=== PATIENT | male | born 1970 | race Caucasian/White ===

== ENCOUNTER 2018-08-20 23:13 | Emergency (ER) | payer BC ==
[~2018-08-20] VITALS: Ht 182.9 cm; Wt 107.7 kg
[2018-08-20 23:45] LABS: BASOPHILS % (AUTO) 0.1 % (0-1); EOSINOPHILS # (AUTO) 0.1 X10'3 (0-0.9); HEMATOCRIT 52.2 % (42.0-52.0); LYMPHOCYTES # (AUTO) 2.2 X10'3 (1.1-4.8); LYMPHOCYTES % (AUTO) 16.9 % (21-51); MEAN CORPUSCULAR HEMOGLOBIN 31.3 PG (27.0-31.0); MEAN CORPUSCULAR HGB CONC 34.4 % (33.0-36.5); MEAN CORPUSCULAR VOLUME 90.8 FL (78-98); MEAN PLATELET VOLUME 8.5 FL (7.4-10.4); MONOCYTES # (AUTO) 0.7 X10'3 (0-0.9); MONOCYTES % (AUTO) 5.6 % (2-12); NEUTROPHILS # (AUTO) 9.8 X10'3 (1.8-7.7); NEUTROPHILS % (AUTO) 76.4 % (42-75); PLATELET COUNT 268 X10'3 (140-440); RED BLOOD COUNT 5.74 X10'6 (4.70-6.10); RED CELL DISTRIBUTION WIDTH 13.9 % (11.5-14.5); WHITE BLOOD COUNT 12.9 X10'3 (4.5-11.0)
[2018-08-20 23:56] LABS: ALANINE AMINOTRANSFERASE 22 U/L (12-78); ALBUMIN 4.3 G/DL (3.4-5.0); ALBUMIN/GLOBULIN RATIO 1.1 (1.1-1.5); ALKALINE PHOSPHATASE 68 IU/L (46-116); ANION GAP 16 (8-16); ASPARTATE AMINO TRANSFERASE 14 U/L (10-37); BILIRUBIN,TOTAL 0.8 MG/DL (0.1-1.0); BLOOD UREA NITROGEN 13 MG/DL (7-18); BUN/CREATININE RATIO 13.3 (5.4-32.0); CALCIUM 9.2 MG/DL (8.5-10.1); CHLORIDE 99 MMOL/L (99-107); CREATININE 0.98 MG/DL (0.60-1.10); GLUCOSE 103 MG/DL (70-104); POTASSIUM 3.7 MMOL/L (3.5-5.1); SODIUM 139 MMOL/L (135-145); TOTAL PROTEIN 8.3 G/DL (6.4-8.2); eGFR 81 ML/MIN
[2018-08-21] MEDS ORDERED: propofol 1000mg/100ml bottle 100 ML IV ONE
[2018-08-21] MEDS ORDERED: propofol 10mg/ml 20ml vial IV ONE
[2018-08-21 00:02] LABS: MAGNESIUM 2.1 MG/DL (1.5-2.4)
[2018-08-21 00:21] LABS: INR 1.1 INR; PARTIAL THROMBOPLASTIN TIME 32 SECONDS (22-32); PROTHROMBIN TIME 11.1 SECONDS (9.0-12.0)
--- NOTE | 2018-08-21 00:28 | NUR ---
MD CALLES ASSESSED PT AND DETERMINED PT RECENTLY WENT INTO A-FIB. WE WILL CARDIOVERT AT BEDSIDE.
--- NOTE | 2018-08-21 01:10 | NUR ---
PT TOLERATED PROCEDURE WELL, RETURNED TO BASELINE RAPIDLY, MD RAZA AT BEDSIDE FOR RE-EVAL FOR DISCHARGE.
[2018-08-21 01:59] VITALS: BP 124/65
== END 2018-08-21 02:00 | disposition home or self-care (01) ==
LOC: ER 23:14
DX: I48.2 Chronic atrial fibrillation (principal); I10 Essential (primary) hypertension
CPT/HCPCS: 36415; 71045; 80053; 83735; 84484; 85025; 85610; 85730; 92960; 93005; 99285; J2704

== ENCOUNTER 2018-08-24 02:18 | Emergency (ER) | payer BC ==
[~2018-08-24] VITALS: Ht 182.9 cm; Wt 107.7 kg
[2018-08-24] MEDS ORDERED: aspirin 81mg tab.chew PO ONE (02:30)
[2018-08-24 02:59] LABS: BASOPHILS % (AUTO) 0.4 % (0-1); EOSINOPHILS # (AUTO) 0.1 X10'3 (0-0.9); EOSINOPHILS % (AUTO) 1.3 % (0-6); HEMATOCRIT 54.2 % (42.0-52.0); LYMPHOCYTES # (AUTO) 2.7 X10'3 (1.1-4.8); LYMPHOCYTES % (AUTO) 28.4 % (21-51); MEAN CORPUSCULAR HEMOGLOBIN 30.5 PG (27.0-31.0); MEAN CORPUSCULAR HGB CONC 33.7 % (33.0-36.5); MEAN CORPUSCULAR VOLUME 90.6 FL (78-98); MEAN PLATELET VOLUME 8.3 FL (7.4-10.4); MONOCYTES # (AUTO) 0.7 X10'3 (0-0.9); MONOCYTES % (AUTO) 7.4 % (2-12); NEUTROPHILS # (AUTO) 5.9 X10'3 (1.8-7.7); NEUTROPHILS % (AUTO) 62.5 % (42-75); PLATELET COUNT 254 X10'3 (140-440); RED BLOOD COUNT 5.99 X10'6 (4.70-6.10); RED CELL DISTRIBUTION WIDTH 13.9 % (11.5-14.5); WHITE BLOOD COUNT 9.4 X10'3 (4.5-11.0)
[2018-08-24 03:03] LABS: HEMOGLOBIN 18.3 g/dl (14.0-17.9)
[2018-08-24 03:07] LABS: INR 1.1 INR; PARTIAL THROMBOPLASTIN TIME 32 SECONDS (22-32)
[2018-08-24 03:08] LABS: ALANINE AMINOTRANSFERASE 25 U/L (12-78); ALBUMIN 4.5 G/DL (3.4-5.0); ALBUMIN/GLOBULIN RATIO 1.1 (1.1-1.5); ALKALINE PHOSPHATASE 72 IU/L (46-116); ANION GAP 15 (8-16); ASPARTATE AMINO TRANSFERASE 26 U/L (10-37); BLOOD UREA NITROGEN 18 MG/DL (7-18); BUN/CREATININE RATIO 19.1 (5.4-32.0); CALCIUM 9.3 MG/DL (8.5-10.1); CHLORIDE 96 MMOL/L (99-107); CREATININE 0.94 MG/DL (0.60-1.10); GLUCOSE 103 MG/DL (70-104); POTASSIUM 3.2 MMOL/L (3.5-5.1); SODIUM 138 MMOL/L (135-145); TOTAL PROTEIN 8.7 G/DL (6.4-8.2); eGFR 85 ML/MIN
--- NOTE | 2018-08-24 03:12 | NUR ---
at bedside assessing patient
[2018-08-24 05:44] VITALS: BP 145/103
== END 2018-08-24 05:46 | disposition home or self-care (01) ==
LOC: ER 02:19
DX: R07.89 Other chest pain (principal); R00.2 Palpitations; I49.1 Atrial premature depolarization; I48.91 Unspecified atrial fibrillation; I10 Essential (primary) hypertension
CPT/HCPCS: 36415; 71045; 80053; 84484; 85025; 85610; 85730; 93005; 99284

== ENCOUNTER 2021-06-03 01:09 | Emergency (ER) | payer BC, OTHER ==
[~2021-06-03] VITALS: Ht 182.9 cm; Wt 118.2 kg
[2021-06-03] MEDS ORDERED: dexamethasone sod phosphate 10mg/ml inj IV STA (01:26)
[2021-06-03] MEDS ORDERED: aspirin 81mg tab.chew PO ONE (01:30)
[2021-06-03] MEDS ORDERED: diltiazem-NS 100mg/100ml 100 ML IV ONE (01:45)
[2021-06-03] MEDS ORDERED: diltiazem 5mg/ml 5ml inj. IV ONE (01:45)
[2021-06-03 01:49] LABS: EOSINOPHILS # (AUTO) 0.2 X10'3 (0-0.9); LYMPHOCYTES # (AUTO) 1.9 X10'3 (1.1-4.8); MONOCYTES # (AUTO) 0.8 X10'3 (0-0.9)
[2021-06-03 01:52] LABS: BASOPHILS % (AUTO) 0.4 % (0-1); EOSINOPHILS % (AUTO) 2.3 % (0-6); HEMATOCRIT 49.4 % (42.0-52.0); HEMOGLOBIN 17.2 g/dl (14.0-17.9); LYMPHOCYTES % (AUTO) 27.1 % (21-51); MEAN CORPUSCULAR HEMOGLOBIN 31.6 PG (27.0-31.0); MEAN CORPUSCULAR HGB CONC 34.9 g/dL (33.0-36.5); MEAN CORPUSCULAR VOLUME 90.4 FL (78-98); MEAN PLATELET VOLUME 7.5 FL (7.4-10.4); MONOCYTES % (AUTO) 11.1 % (2-12); NEUTROPHILS # (AUTO) 4.2 X10'3 (1.8-7.7); NEUTROPHILS % (AUTO) 59.1 % (42-75); PLATELET COUNT 298 X10'3 (140-440); RED BLOOD COUNT 5.46 X10'6 (4.70-6.10); RED CELL DISTRIBUTION WIDTH 13.7 % (11.5-14.5); WHITE BLOOD COUNT 7.2 X10'3 (4.5-11.0)
[2021-06-03 01:55] LABS: ALANINE AMINOTRANSFERASE 33 U/L (12-78); ALBUMIN 3.8 G/DL (3.4-5.0); ALBUMIN/GLOBULIN RATIO 0.8 (1.1-1.5); ALKALINE PHOSPHATASE 82 IU/L (46-116); ANION GAP 12 (8-16); ASPARTATE AMINO TRANSFERASE 17 U/L (10-37); BILIRUBIN,TOTAL 0.6 MG/DL (0.1-1.0); BLOOD UREA NITROGEN 15 MG/DL (7-18); CALCIUM 9.4 MG/DL (8.5-10.1); CHLORIDE 105 MMOL/L (99-107); CREATININE 1.15 MG/DL (0.60-1.10); GLUCOSE 170 MG/DL (70-104); POTASSIUM 3.7 MMOL/L (3.5-5.1); SODIUM 145 MMOL/L (135-145); TOTAL CARBON DIOXIDE 28.4 MMOL/L (24-32); TOTAL PROTEIN 8.3 G/DL (6.4-8.2); eGFR 67 ML/MIN
[2021-06-03 01:56] LABS: D-DIMER < 0.19 MG/L FEU (0-0.50)
[2021-06-03 02:09] LABS: C-REACTIVE PROTEIN 0.85 MG/DL (0.0-0.5); FERRITIN 411 NG/ML (26-388); LACTATE DEHYDROGENASE 148 U/L (85-227); MAGNESIUM 2.1 MG/DL (1.5-2.4)
--- NOTE | 2021-06-03 02:11 | NUR ---
PT CARDIOVERTED ON MONITOR PRIOR TO ME ADMINISTERING IV CARDIZEM. HAD A SECOND EKG DONE. PT SINUS RHYTHM. DR Montaño HAS REVIEWED NEW EKG AND CANCELLED CARDIZEM
[2021-06-03] MEDS ORDERED: CASIRIVIMAB/IMDEVIMAB inject. 10 ML in normal saline 100ml IV soln 100 ML IV ONE (02:25)
[2021-06-03 05:14] VITALS: BP 114/67
== END 2021-06-03 06:06 | disposition home or self-care (01) ==
LOC: ER 01:10
DX: U07.1 COVID-19 (principal); J12.82 Pneumonia due to coronavirus disease 2019; I48.91 Unspecified atrial fibrillation; N28.9 Disorder of kidney and ureter, unspecified; I10 Essential (primary) hypertension; G47.30 Sleep apnea, unspecified; Z79.01 Long term (current) use of anticoagulants; Z72.89 Other problems related to lifestyle
CPT/HCPCS: 36415; 71045; 80053; 82728; 83615; 83735; 83880; 84145; 84484; 85025; 85379; 85384; 86140; 93005; 96374; 99285; J1100; M0243; Q0244

== ENCOUNTER 2024-08-15 16:21 | Emergency (ER) | payer OTHER ==
[~2024-08-15] VITALS: Ht 182.9 cm; Wt 109.0 kg
[2024-08-15] MEDS ORDERED: IRBE1TAB31 PO (17:09)
[2024-08-15] MEDS ORDERED: RIVA20TA PO (17:09)
[2024-08-15] MEDS: normal saline 1000ml 1,000 ML IV ONE (17:09)
[2024-08-15] MEDS ORDERED: FLEC50TA PO (17:09)
[2024-08-15] MEDS ORDERED: SEMA14TA2 PO (17:09)
[2024-08-15] MEDS ORDERED: TEST200V33 IM (17:09)
[2024-08-15] MEDS ORDERED: SUVO20TA PO (17:09)
[2024-08-15] MEDS: adenosine 3mg/ml 2ml vial IV ONE (17:10)
[2024-08-15 17:59] LABS: BASOPHILS % (AUTO) 0.2 % (0-1); EOSINOPHILS # (AUTO) 0.1 X10'3 (0-0.9); EOSINOPHILS % (AUTO) 0.9 % (0-6); HEMATOCRIT 46.4 % (42.0-52.0); HEMOGLOBIN 16.3 g/dl (14.0-17.9); LYMPHOCYTES # (AUTO) 1.6 X10'3 (1.1-4.8); LYMPHOCYTES % (AUTO) 20.4 % (21-51); MEAN CORPUSCULAR HEMOGLOBIN 32.1 PG (27.0-31.0); MEAN CORPUSCULAR VOLUME 91.7 FL (78-98); MEAN PLATELET VOLUME 7.5 FL (7.4-10.4); MONOCYTES # (AUTO) 0.6 X10'3 (0-0.9); MONOCYTES % (AUTO) 7.5 % (2-12); NEUTROPHILS # (AUTO) 5.5 X10'3 (1.8-7.7); PLATELET COUNT 246 X10'3 (140-440); RED BLOOD COUNT 5.06 X10'6 (4.70-6.10); RED CELL DISTRIBUTION WIDTH 14.2 % (11.5-14.5); WHITE BLOOD COUNT 7.7 X10'3 (4.5-11.0)
[2024-08-15] MEDS: metoprolol tartrate 1mg/ml inj IV ONE (18:27)
[2024-08-15 18:36] LABS: ALANINE AMINOTRANSFERASE 28 U/L (12-78); ALBUMIN 3.6 G/DL (3.4-5.0); ALBUMIN/GLOBULIN RATIO 0.9 (1.1-1.5); ALKALINE PHOSPHATASE 68 IU/L (46-116); ANION GAP 9 (8-16); ASPARTATE AMINO TRANSFERASE 15 U/L (10-37); BILIRUBIN,TOTAL 1.1 MG/DL (0.1-1.0); BLOOD UREA NITROGEN 12 MG/DL (7-18); BUN/CREATININE RATIO 16.2 (10.0-20.0); CALCIUM 8.9 MG/DL (8.5-10.1); CHLORIDE 105 MMOL/L (99-107); CREATININE 0.74 MG/DL (0.60-1.10); GLUCOSE 142 MG/DL (70-104); POTASSIUM 3.1 MMOL/L (3.5-5.1); PRO BRAIN NATRIURETIC PEPTIDE < 30 PG/ML (0-125); SODIUM 142 MMOL/L (135-145); TOTAL CARBON DIOXIDE 27.9 MMOL/L (24-32); TOTAL PROTEIN 7.4 G/DL (6.4-8.2); eCRCL 122 ML/MIN; eGFR > 90 ML/MIN
[2024-08-15] MEDS: metoprolol tartrate 25mg tablet PO ONE (18:58)
[2024-08-15 19:26] VITALS: BP 128/93; PULSE 97
[2024-08-15 20:51] VITALS: RESP 18; TEMP 99.2; O2SAT 100
== END 2024-08-15 20:53 | disposition still patient (30) ==
LOC: ER 16:21
DX: I47.10 Supraventricular tachycardia, unspecified (principal); G47.30 Sleep apnea, unspecified; I10 Essential (primary) hypertension; I48.91 Unspecified atrial fibrillation; Z20.822 Contact with and (suspected) exposure to COVID-19; Z79.01 Long term (current) use of anticoagulants
CPT/HCPCS: 36415; 71045; 80053; 83880; 84484; 85025; 87502; 87503; 87811; 93005; 96374; 99291; J3490; J7030

== ENCOUNTER 2024-08-23 14:47 | Emergency (ER) | payer OTHER ==
[~2024-08-23] VITALS: Ht 182.9 cm; Wt 107.0 kg
[~2024-08-23 14:47] MED LIST: FLEC50TA PO; IRBE1TAB31 PO; RIVA20TA PO; SEMA14TA2 PO; SUVO20TA PO; TEST200V33 IM
[2024-08-23 15:16] LABS: BASOPHILS % (AUTO) 0.2 % (0-1); EOSINOPHILS % (AUTO) 0.5 % (0-6); HEMATOCRIT 51.3 % (42.0-52.0); LYMPHOCYTES # (AUTO) 1.5 X10'3 (1.1-4.8); LYMPHOCYTES % (AUTO) 19.9 % (21-51); MEAN CORPUSCULAR HEMOGLOBIN 32.2 PG (27.0-31.0); MEAN CORPUSCULAR HGB CONC 35.1 g/dL (33.0-36.5); MEAN CORPUSCULAR VOLUME 91.8 FL (78-98); MEAN PLATELET VOLUME 7.7 FL (7.4-10.4); MONOCYTES # (AUTO) 0.5 X10'3 (0-0.9); MONOCYTES % (AUTO) 6.1 % (2-12); NEUTROPHILS # (AUTO) 5.7 X10'3 (1.8-7.7); NEUTROPHILS % (AUTO) 73.3 % (42-75); PLATELET COUNT 290 X10'3 (140-440); RED BLOOD COUNT 5.59 X10'6 (4.70-6.10); RED CELL DISTRIBUTION WIDTH 14.3 % (11.5-14.5); WHITE BLOOD COUNT 7.7 X10'3 (4.5-11.0)
[2024-08-23 15:31] LABS: ALANINE AMINOTRANSFERASE 27 U/L (12-78); ALBUMIN 3.9 G/DL (3.4-5.0); ALKALINE PHOSPHATASE 72 IU/L (46-116); ANION GAP 11 (8-16); ASPARTATE AMINO TRANSFERASE 21 U/L (10-37); BILIRUBIN,TOTAL 1.3 MG/DL (0.1-1.0); BLOOD UREA NITROGEN 10 MG/DL (7-18); BUN/CREATININE RATIO 10.2 (10.0-20.0); CALCIUM 8.8 MG/DL (8.5-10.1); CHLORIDE 106 MMOL/L (99-107); CREATININE 0.98 MG/DL (0.60-1.10); GLUCOSE 122 MG/DL (70-104); POTASSIUM 3.8 MMOL/L (3.5-5.1); SODIUM 142 MMOL/L (135-145); TOTAL CARBON DIOXIDE 25.5 MMOL/L (24-32); eCRCL 92 ML/MIN; eGFR 79 ML/MIN
[2024-08-23 15:40] LABS: PRO BRAIN NATRIURETIC PEPTIDE 55 PG/ML (0-125)
[2024-08-23] MEDS: metoprolol tartrate 25mg tablet PO ONE (17:35)
[2024-08-23] MEDS ORDERED: LOP12.5T PO (17:37)
[2024-08-23 18:28] VITALS: BP 152/91; PULSE 94; RESP 10; TEMP 98.6; O2SAT 97
== END 2024-08-23 18:39 | disposition home or self-care (01) ==
LOC: ER 14:48
DX: I47.10 Supraventricular tachycardia, unspecified (principal); I10 Essential (primary) hypertension; G47.30 Sleep apnea, unspecified; I48.91 Unspecified atrial fibrillation
CPT/HCPCS: 36415; 71045; 80053; 83880; 84484; 85025; 93005; 99285

== ENCOUNTER 2025-06-24 01:02 | Emergency (ER) | payer OTHER ==
[~2025-06-24] VITALS: Ht 182.9 cm; Wt 114.0 kg
[~2025-06-24 01:02] MED LIST changes: +LOP12.5T PO
--- NOTE | 2025-06-24 01:07 | ELECTROCARDIOGRAPH REPORT ---
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 Billy Valdez Measurements Intervals [place] Rate: 151 P: 0 [place]: 0 QRS: 77 QRSD: 96 T: -17 QT: 292 QTc: 463 Interpretive Statements Atrial flutter with varied AV block, Borderline T wave abnormalities Electronically Signed On 06-24-2025 3:51:[address] Billy Valdez Please click the below link to view image of tracing.
--- NOTE | 2025-06-24 01:29 | RADIOLOGY REPORT ---
CHEST RADIOGRAPH Indication: CP Technique: Single frontal view of the chest was obtained COMPARISON: DI CHEST,SINGLE VIEW on DOS: 08/23/24, DI CHEST,SINGLE VIEW on DOS: 08/15/24, CHEST,SINGLE VIEW on DOS: 06/03/21 FINDINGS: Lines and Tubes: None Lungs: Clear Pleura: No effusion. No pneumothorax. Cardiomediastinal contours: Unremarkable Bones: Unremarkable IMPRESSION: 1. No acute disease.
[2025-06-24 01:35] LABS: MEAN PLATELET VOLUME 7.5 FL (7.4-10.4); RED CELL DISTRIBUTION WIDTH 14.4 % (11.5-14.5)
[2025-06-24] MEDS: magnesium sulf-water 2g/50mL 50 ML IV ONE (01:35)
[2025-06-24 01:56] LABS: CREATININE 1.07 MG/DL (0.60-1.10); PRO BRAIN NATRIURETIC PEPTIDE 265 PG/ML (0-125); TOTAL CARBON DIOXIDE 26.7 MMOL/L (24-32); eCRCL 84 ML/MIN; eGFR 71 ML/MIN
[2025-06-24] MEDS: normal saline 1000ML IV soln IVB ONE (01:56)
[2025-06-24] MEDS: ketamine 10mg/ml 20ml inj vial IV ONE (02:00)
[2025-06-24] MEDS: etomidate 2mg/ml inj. IV ONE (02:01)
[2025-06-24] MEDS: metoprolol tartrate 1mg/ml inj IV ONE (02:46)
[2025-06-24 05:43] VITALS: TEMP 98.6
--- NOTE | 2025-06-24 07:31 | Physician Documentation ---
History of Present Illness ~ Chief Complaint: Chest Pain Stated Complaint: AFIB Time Seen by MD: 01:09 OK to notify your PCP?: Yes Primary Medical Doctor: Cassi Tavera Source: patient, RN/MD, RN notes reviewed, old records Mode of Arrival: Ambulatory Exam Limitations: no limitations HPI This patient has a history of paroxysmal AFib in his seen by Dr. Ye. He recently three weeks ago has a change from sotalol to Rythmol. Patient has been feeling a bit fatigued from the sotalol so medication change was made. Patient is complaining of some discomfort shortness of breath that is started today at 6:45 p.m.. The patient took his Rythmol weighted started to feel little better but then got worse took a 2nd doses instructed and then did not improve. He arrives with a heart rate in the 160s 170s in rapid AFib. He is compliant with his medications he is on Xarelto. He is also in normal sinus rhythm and has a diagnosis of paroxysmal AFib. He has had a workup in the past by Dr. Ye with a negative echo and negative stress test. The patient is now here for evaluation and care he has chest pain chest pressure but otherwise feels fine he is tolerating it quite well Medication Reconciliation Allergies: Coded Allergies: No Known Allergies (Unverified , 06/24/25) Scheduled Flecainide Acetate (Flecainide Acetate), 1 TAB PO BID, (Reported) Irbesartan/Hydrochlorothiazide (Irbesartan-Hctz 150-12.5 Mg Tb), 1 TAB PO DAILY, (Reported) Metoprolol Tartrate (Lopressor tablet), 1 TAB PO Q12H Rivaroxaban (Xarelto), 1 TAB PO DAILY, (Reported) Semaglutide (Rybelsus), 1 TAB PO DAILY, (Reported) Testosterone Cypionate (TESTOSTERONE CYPIONATE 200mg/ml 10ml vial), 1 ML IM q10 days, (Reported) Scheduled PRN Suvorexant (Belsomra), 1 TAB PO HS PRN for sleep, (Reported) Past Medical History Past Medical History: Atrial Fibrillation, Hypertension, Sleep Apnea Past Surgical History: noncontributory Smoking Status: Never smoker Alcohol Use: Occasionally Drug Use: none Lives In: Home Occupation: employed Review of Systems All Other Systems at this time: Reviewed and Negative Physical Exam Vital Signs: RN Vital Signs have been reviewed: Yes, Temperature: 98.6, Source: Oral, Heart Rate: 91, Respiratory Rate: 16, BP: 125/88, Pulse Oximetry: 96, Weight: 114.000 Oxygen Flow Rate: 0 Physical Exam General: The patient is well developed, well nourished, nontoxic appearing and is in no acute distress. Skin: [place], warm and dry with no rashes. HEENT: Head was normocephalic and atraumatic. Eyes - pupils equal, round, reactive to light and accommodation. Extraocular movements were intact. Conjunctivae were nonicteric. Ears - bilateral tympanic membranes were normal. The mouth and oropharynx were clear with moist mucous membranes. There were no pharyngeal exudates or erythema. Neck: Supple and nontender. There was no jugular venous distention, lymphadenopathy, thyromegaly or masses. Chest: Clear to auscultation bilaterally without wheezes, rales or rhonchi. No accessory muscle use. No dullness to percussion. Heart: Rate IRregular rapid and rhythmic. S1, S2. No murmurs. Palpation of the chest wall was normal. No rubs or thrills. Abdomen: Soft, nontender and nondistended. Positive bowel sounds. No guarding or rebound. No hepatosplenomegaly or palpable masses. Extremities: No cyanosis, clubbing or edema. The patient moves all extremities. Pulses were equal and symmetric. Neurologic: Motor sensory grossly intact Psychologic: The patient was oriented to person, place and time. The patient demonstrated appropriate judgement and insight. Procedures Cardioversion Cardioversion : Medications: Other (Etomidate and and ketamine) Joules: 200 Resulting Rhythm: A fib Tolerated Procedure Well?: yes, no complications Procedure Note Procedure note. Residents at bedside who performed the procedure. After a time-out procedure started at 2:21 a.m. with moderate sedation. recreation technician crash cart time out were all performed. Etomidate and ketamine were administered 2:30 a.m. patient was converted with 200 joules 3:00 a.m. patient was cleared for moderate sedation. Progress Results/Orders Reviewed/noted all lab results: Yes Results/Orders Orders - ROMAN CRUM MD Chest,Single View (06/24/25 01:05) Monitor (06/24/25 01:05) Saline Lock (06/24/25 01:05) Oxygen (06/24/25 01:05) Electrocardiogram (06/24/25 01:05) Hs Troponin I W Calculations (06/24/25 04:05) Completed Orders - ROMAN CRUM MD Chest,Single View (06/24/25 01:05) Cbc/Diff (06/24/25 01:05) BMP (06/24/25 01:05) PBNP (06/24/25 01:05) Electrocardiogram (06/24/25 01:05) Hs Troponin I W Calculations (06/24/25 01:05) Hs Troponin I W Calculations (06/24/25 03:05) Magnesium Sulf-Water 2g/50ml (Magnesium (06/24/25 01:30) Etomidate Inj (Amidate Inj) (06/24/25 01:55) Ketamine 10mg/Ml 20ml Inj (Ketamine 10mg (06/24/25 01:55) Normal Saline 1000ml (0.9% Sodium Chlori (06/24/25 01:55) Liver Panel (06/24/25 01:18) MG (06/24/25 01:18) Metoprolol Tartrate Inj (Lopressor Iv) (06/24/25 02:30) Medications Received in ER Medications (Trade) Dose Ordered Sig/Massiel Route PRN Reason Start Time Stop Time Status Last Admin Dose Admin Magnesium Sulfate 50 ml @ 25 mls/hr ONCE ONCE IV 06/24/25 01:30 06/24/25 03:29 DC 06/24/25 01:35 25 MLS/HR (Amidate inj) 5 mg ONCE ONCE IV 06/24/25 01:55 06/24/25 01:56 DC 06/24/25 02:01 5 MG (ketamine 10mg/ ml 20ml inj) 200 mg ONCE ONCE IV 06/24/25 01:55 06/24/25 01:58 DC 06/24/25 02:00 200 MG (0.9% sodium chloride (NS) 1000ml IV soln) 1,000 ml ONCE ONCE IVB 06/24/25 01:55 06/24/25 01:56 DC 06/24/25 01:56 1,000 ML (Lopressor IV) 5 mg ONCE ONCE IV 06/24/25 02:30 06/24/25 02:31 DC 06/24/25 02:46 5 MG Vital Signs 06/24/25 06/24/25 06/24/25 06/24/25 01:06 01:40 01:58 02:10 Temp 98.6 98.6 Pulse 148 157 119 Resp 16 19 17 B/P (MAP) 157/88 138/88 (105) Pulse Ox 94 97 97 O2 Delivery Nasal Cannula O2 Flow Rate 0 0 2.0 06/24/25 06/24/25 06/24/25 06/24/25 02:16 02:21 02:30 02:35 Temp 98.6 98.6 Pulse 97 101 122 109 Resp 18 11 17 B/P (MAP) 182/123 128/138 185/116 (139) 174/111 (132) 185/116 Pulse Ox 98 98 97 98 O2 Delivery Nasal Cannula Nasal Cannula O2 Flow Rate 2.0 2.0 2.0 2.0 06/24/25 06/24/25 06/24/25 06/24/25 02:38 02:46 02:50 02:50 Temp 98.6 Pulse 106 102 95 95 Resp 21 10 10 B/P (MAP) 170/113 (132) 164/112 (129) 164/112 (129) Pulse Ox 99 97 97 O2 Delivery Nasal Cannula Room Air O2 Flow Rate 0 0 06/24/25 06/24/25 06/24/25 06/24/25 03:00 03:00 03:15 04:11 Temp 98.6 98.6 Pulse 90 90 89 89 Resp 12 12 15 12 B/P (MAP) 147/108 (121) 147/108 (121) 149/109 (122) 125/79 (94) Pulse Ox 96 96 94 93 O2 Delivery Room Air Room Air O2 Flow Rate 0 0 0 0 06/24/25 06/24/25 05:43 06:53 Temp 98.6 Pulse 92 91 Resp 18 16 B/P (MAP) 142/92 (109) 125/88 (100) Pulse Ox 97 96 O2 Flow Rate 0 Laboratory Tests Test 06/24/25 01:18 06/24/25 03:18 White Blood Count 8.6 Red Blood Count 5.52 Hemoglobin 17.5 Hematocrit 50.2 Mean Corpuscular Volume 90.9 Mean Corpuscular Hemoglobin 31.8 H Mean Corpuscular Hemoglobin Concent 35.0 Red Cell Distribution Width 14.4 Platelet Count 245 Mean Platelet Volume 7.5 Neutrophils (%) (Auto) 69.8 Lymphocytes (%) (Auto) 19.3 L Monocytes (%) (Auto) 8.9 Eosinophils (%) (Auto) 1.6 Basophils (%) (Auto) 0.4 Neutrophils # (Auto) 6.0 Lymphocytes # (Auto) 1.7 Monocytes # (Auto) 0.8 Eosinophils # (Auto) 0.1 Basophils # (Auto) 0.0 CBC Comment Sodium Level 142 Potassium Level 3.7 Chloride Level 108 H Carbon Dioxide Level 26.7 Anion Gap 7 L Blood Urea Nitrogen 12 Creatinine 1.07 Estimated GFR/1.73 m2 71 BUN/Creatinine Ratio 11.2 Glucose Level 143 H Calcium Level 8.3 L Magnesium Level 1.7 Total Bilirubin 0.9 Direct Bilirubin 0.1 Aspartate Amino Transf (AST/SGOT) 19 Alanine Aminotransferase (ALT/SGPT) 30 Alkaline Phosphatase 84 Troponin I High Sensitivity 55 48 Pro-B-Type Natriuretic Peptide 265 H Total Protein 7.5 Albumin 3.7 Globulin 3.8 Albumin/Globulin Ratio 1.0 L Chemistry Comments Troponin I High Sens Percent Delta 12 Troponin I Hi Sens Absolute Change -7 Re-Evaluation Re-Evaluation : Re-Evaluation: Improved Progress Patient was observed overnight he was feeling strange had double vision did not like the feeling of ketamine. He was given breakfast and ultimately discharged home with normal sinus rhythm. Patient tolerated the procedure as well. Patient's laboratory work shows a normal CBC without anemia or left shift. C hemistry potassium 3.7 magnesium 1.7. Pretreatment patient received 2 g of magnesium as well as some fluids. LFTs are within normal limits troponins are negative. Continuous conveyor monitor interpretation shows rapid AFib with RVR heart rate 160s, abnormal, my interpretation. Currently normal sinus rhythm heart rate 90s, no ectopy, normal, my interpretation. Pulse oximetry monitor interpretation shows normal oxygenation at 97% room air, normal, my interpretation. 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 Roman Crum Measurements Intervals [place] Rate: 151 P: 0 [place]: 0 QRS: 77 QRSD: 96 T: -17 QT: 292 QTc: 463 Interpretive Statements Atrial flutter with varied AV block, Borderline T wave abnormalities Electronically Signed On 06-24-2025 3:51:[address] Roman Crum Please click the below link to view image of tracing. EKG Date and Time:06/24/25 010 Electronically Signed by: ROMAN CRUM MD Chest X-Ray : Interpreted By: both Views: 1 VIEW Additional Comments CHEST RADIOGRAPH Indication: CP Technique: Single frontal view of the chest was obtained COMPARISON: DI CHEST,SINGLE VIEW on DOS: 08/23/24, DI CHEST,SINGLE VIEW on DOS: 08/15/24, CHEST,SINGLE VIEW on DOS: 06/03/21 FINDINGS: Lines and Tubes: None Lungs: Clear Pleura: No effusion. No pneumothorax. Cardiomediastinal contours: Unremarkable Bones: Unremarkable IMPRESSION: 1. No acute disease. Heart Score: Heart Score Response (Comments) Value History Slightly Suspicious 0 EKG Repolarization Disturb 1 Age 45-64 1 Risk Factors 1 or 2 risk factors 1 Total 3 Medical Decision Making Additional information obtaine: old records Findings Patient was rapid AFib RVR possible ischemic etiologies electrolyte abnormalities or arrhythmias was considered Heart Score: 3 Differential Dx:Considerations: Include: angina, aortic dissection, chest wall pain, cholelithiasis, CHF, costochondritis, esophageal reflux/spasm, gastritis, herpes zoster, myocardial infarction, pericarditis, pleuritis, pancreatitis, pneumonia, pneumothorax, pulmonary embolus, other Departure Disposition: 01 HOME / SELF CARE / HOMELESS Impression: Primary Impression: Atrial fibrillation with rapid ventricular response Additional Impression: Encounter for cardioversion procedure Condition: Stable Discharge Instructions: Atrial Fibrillation, [id number] Referrals: NO PRIMARY CARE PROVIDER (PCP) Education Educated: Patient Educated regarding: diagnosis, need for follow up, other Critical Care Note Total Time (mins): 30 Critical Care Note The very real possibility of a deterioration of this patient's condition required the highest level of my preparedness for sudden, emergent intervention. I provided critical care services, which included medication orders, frequent reevaluations of the patient's condition and response to treatment, ordering and reviewing test results, and discussing the case with various consultants. Excludes time spent performing separately billable procedures. The critical care time associated with the care of the patient was. 30 minutes Signature Scribe Signature: x Attestation: The note accurately reflects work and decisions made by me.Roman Crum MD 06/24/25 07:53 ROMAN CRUM MD Jun 24, 2025 07:31
--- NOTE | 2025-06-24 07:36 | ELECTROCARDIOGRAPH REPORT ---
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 Roman Crum Measurements Intervals [place] Rate: 118 P: 54 [place]: 154 QRS: 75 QRSD: 100 T: 56 QT: 320 QTc: 449 Interpretive Statements Sinus tachycardia RSR' in V1 or V2, probably normal variant Minimal ST elevation, inferior leads Electronically Signed On 06-24-2025 18:10:[address] Roman Crum Please click the below link to view image of tracing.
[2025-06-24 09:19] VITALS: BP 148/99; PULSE 94; RESP 16; O2SAT 98
--- NOTE | 2025-06-24 10:12 | ELECTROCARDIOGRAPH REPORT ---
[facility] Test Date: 2025-06-24 Test Time: 07:47:05 Pat Name: JACKY KLINE Department: EMERGENCY ROOM Room: Gender: M Family Service Assistant: UZMA : 1970 Requested By: DEPARTMENT EMERGENCY Order Number: [id number] Reading MD: Dr. Roman Crum Measurements Intervals [place] Rate: 94 P: 33 [place]: 151 QRS: 56 QRSD: 116 T: 18 QT: 353 QTc: 442 Interpretive Statements Sinus rhythm Nonspecific intraventricular conduction delay Electronically Signed On 06-24-2025 18:10:[address] Roman Crum Please click the below link to view image of tracing.
== END 2025-06-24 09:18 | disposition home or self-care (01) ==
LOC: ER 01:02
DX: I48.20 Chronic atrial fibrillation, unspecified (principal); G47.30 Sleep apnea, unspecified; I10 Essential (primary) hypertension; R06.02 Shortness of breath
CPT/HCPCS: 36415; 71045; 80048; 80076; 83735; 83880; 84484; 85025; 92960; 93005; 96365; 96366; 96375; 99291; J3490; J7030; A4620